=== PATIENT | female | born 1985 | race African-American/Black ===

== ENCOUNTER 2019-08-05 11:58 | Emergency (ER) | payer OTHER ==
[2019-08-05 12:08] VITALS: BP 122/80; PULSE 96; TEMP 98; BMI 28.1
[2019-08-05 14:00] LABS: HCG,QUALITATIVE URINE Positive
[2019-08-05 14:03] LABS: EPI CELLS >36 /uL (0-25.1); HYALINE CASTS 2 /uL (0-3.1); PH,URINE 5.5 (5.0-8.0); URINE APPEARANCE CLOUDY; URINE BACTERIA 2495 /uL (0-1359); URINE BILIRUBIN NEGATIVE (NEGATIVE); URINE COLOR YELLOW; URINE GLUCOSE (UA) NEGATIVE (NEGATIVE); URINE KETONE NEGATIVE (NEGATIVE); URINE LEUK ESTERASE 2+ (NEGATIVE); URINE NITRITE NEGATIVE (NEGATIVE); URINE PROTEIN NEGATIVE (NEGATIVE); URINE RBC 3 /uL (0-23.9); URINE UROBILINOGEN 0.2 mg/dL (0.2-1.0); URINE WBC 41 /uL (0-25.8)
== END 2019-08-05 15:52 | disposition home or self-care (01) ==
LOC: JER 11:58
DX: O26.899 Other specified pregnancy related conditions, unspecified trimester (principal); R10.9 Unspecified abdominal pain
CPT/HCPCS: 36415; 76817-TC; 81003; 84702; 84703; 87086; 99284-25

== ENCOUNTER 2020-04-05 07:00 | Inpatient (IN) | payer OTHER ==
[2020-04-05] MEDS: DEXTROSE 5%-LACTATED RINGERS 1,000 ML IV SCH (08:30)
[2020-04-05 08:40] VITALS: BMI 34.4
[2020-04-05 08:42] LABS: BASO % 0.2 % (0-2.0); EOS % 0.4 % (0-4.5); HEMATOCRIT 33.7 % (32.4-45.2); HEMOGLOBIN 11.2 GM/dL (10.7-15.3); LYMPH % 20.3 % (8-40); MCH 30.6 pg (25.7-33.7); MCHC 33.1 g/dl (32.0-36.0); MEAN CELL VOLUME 92.4 fl (80-96); MEAN PLT VOLUME 10.9 fl (7.5-11.1); MONO % 9.1 % (3.8-10.2); PLATELET COUNT 132 K/MM3 (134-434); RBC 3.65 M/mm3 (3.60-5.2); RDW 14.1 % (11.6-15.6); WHITE BLOOD COUNT 6.4 K/mm3 (4.0-10.0)
[2020-04-05 08:55] LABS: POTASSIUM 3.7 mmol/L (3.5-5.1)
[2020-04-05 08:56] LABS: CALCIUM 8.6 mg/dL (8.5-10.1)
[2020-04-05 08:57] LABS: BLOOD UREA NITROGEN 8.2 mg/dL (7-18)
[2020-04-05 09:04] LABS: CREATININE 0.5 mg/dL (0.55-1.3)
[2020-04-05 09:08] LABS: INR 0.94 (0.83-1.09); PROTHROMBIN TIME (PATIENT) 11.6 SEC (9.7-13.0)
[2020-04-05 09:11] LABS: ACTIVATED PTT 25.7 SECONDS (25.2-36.5)
[2020-04-05] MEDS ORDERED: OXYTOCIN 30 UNITS in 0.9% NS 30 UNIT/500 ML INFUS.BAG IVPB ONE (09:31)
[2020-04-05] MEDS ORDERED: OXYTOCIN 30 UNITS in 0.9% NS 30 UNIT/500 ML INFUS.BAG IVPB SCH (10:00)
[2020-04-05] MEDS ORDERED: PROMETHAZINE HCL 25 MG/1 ML VIAL IVPUSH ONE (10:00)
[2020-04-05] MEDS ORDERED: BUTORPHANOL TARTRATE 1 MG/ML VIAL IVPUSH PRN (10:00)
[2020-04-05 10:51] LABS: HIV INTERPRETATION NEGATIVE (NEGATIVE)
[2020-04-05] MEDS ORDERED: OXYTOCIN 20 UNITS in 0.9% NS 20 UNIT/1,000 ML INFUS.BAG IV ONE (16:19)
[2020-04-05] MEDS ORDERED: LIDOCAINE HCL 1% PRESERVATIVE FREE - 30ML VIAL ONE (16:19)
[2020-04-05] MEDS: OXYTOCIN 20 UNITS in 0.9% NS 20 UNIT/1,000 ML INFUS.BAG IV SCH (16:45)
[2020-04-05] MEDS ORDERED: BENZOCAINE 28 GM HEMORRHOIDAL OINTMENT TP PRN (16:46)
[2020-04-05] MEDS ORDERED: METHYLERGONOVINE MALEATE 0.2 MG/1 ML AMP IM PRN (16:46)
[2020-04-05] MEDS ORDERED: BENZOCAINE 20% 57 GM BOTTLE TP PRN (16:46)
[2020-04-05] MEDS ORDERED: WITCH HAZEL 50% (TUCKS) 40 PAD/JAR PAD TP PRN (16:46)
[2020-04-05] MEDS ORDERED: BISACODYL 10 MG SUPP.RECT RC PRN (16:46)
[2020-04-05] MEDS ORDERED: ACETAMINOPHEN 325 MG TABLET (FP) ONE (16:59)
[2020-04-05] MEDS ORDERED: IBUPROFEN 600 MG TABLET (FP) PO ONE (16:59)
[2020-04-05] MEDS: ACETAMINOPHEN 325 MG TABLET (FP) PO PRN ×2 (17:00→21:38)
[2020-04-05] MEDS: IBUPROFEN 600 MG TABLET (FP) PO PRN ×2 (17:00→21:39)
[2020-04-05] MEDS: FERROUS SO4 325 MG TABLET (FP) PO SCH (21:38)
[2020-04-06 06:41] LABS: BASO % 0.3 % (0-2.0); EOS % 0.5 % (0-4.5); HEMATOCRIT 34.6 % (32.4-45.2); HEMOGLOBIN 11.5 GM/dL (10.7-15.3); LYMPH % 16.9 % (8-40); MCH 30.7 pg (25.7-33.7); MCHC 33.1 g/dl (32.0-36.0); MEAN CELL VOLUME 92.5 fl (80-96); MEAN PLT VOLUME 10.6 fl (7.5-11.1); MONO % 10.6 % (3.8-10.2); NEUT % 71.7 % (42.8-82.8); PLATELET COUNT 125 K/MM3 (134-434); RBC 3.74 M/mm3 (3.60-5.2); RDW 13.9 % (11.6-15.6); WHITE BLOOD COUNT 10.1 K/mm3 (4.0-10.0)
[2020-04-06] MEDS: PRENATAL VITAMINS W/ FOLIC ACID TABLET (FP) PO SCH (09:14)
[2020-04-06] MEDS: IBUPROFEN 600 MG TABLET (FP) PO PRN (09:14)
[2020-04-06] MEDS: FERROUS SO4 325 MG TABLET (FP) PO SCH ×2 (09:14→21:32)
[2020-04-06] MEDS: DEXTROSE 5%-LACTATED RINGERS 1,000 ML IV SCH (13:48)
[2020-04-06] MEDS: OXYTOCIN 20 UNITS in 0.9% NS 20 UNIT/1,000 ML INFUS.BAG IV SCH (19:20)
[2020-04-06] MEDS ORDERED: SENNOSIDES/DOCUSATE COMBO (SENNA PLUS) TABLET (UD) PO PRN (22:00)
[2020-04-07 08:58] VITALS: BP 133/54; PULSE 90; TEMP 98.8
[2020-04-07] MEDS: FERROUS SO4 325 MG TABLET (FP) PO SCH (09:57)
[2020-04-07] MEDS: PRENATAL VITAMINS W/ FOLIC ACID TABLET (FP) PO SCH (09:57)
== END 2020-04-07 12:00 | disposition home or self-care (01) | DRG 560 ==
LOC: JLDR 07:00 → J3W 23:03
PROVIDERS: ADMIT Obstetrics & Gynecology; ATTEND Obstetrics & Gynecology
PROC: 10E0XZZ Delivery of Products of Conception, External Approach (ICD-10-PCS; principal; 2020-04-05)
PROC: 0HQ9XZZ Repair Perineum Skin, External Approach (ICD-10-PCS; 2020-04-05)
DX: O70.0 First degree perineal laceration during delivery (principal); Z3A.39 39 weeks gestation of pregnancy; Z37.0 Single live birth
CPT/HCPCS: 36415; 59409; 80048; 85025; 85610; 85730; 86780; 86850; 86900; 86901; 87389; C9803; U0003

== ENCOUNTER 2021-04-29 22:05 | Inpatient (IN) | payer OTHER ==
[2021-04-29] MEDS ORDERED: OXYTOCIN 20 UNITS in 0.9% NS 20 UNIT/1,000 ML INFUS.BAG IV ONE (23:19)
[2021-04-29 23:22] LABS: BASO % 0.3 % (0-2.0); EOS % 0.2 % (0-4.5); HEMATOCRIT 35.1 % (32.4-45.2); HEMOGLOBIN 11.8 GM/dL (10.7-15.3); LYMPH % 19.3 % (8-40); MCH 30.1 pg (25.7-33.7); MCHC 33.7 g/dl (32.0-36.0); MEAN CELL VOLUME 89.5 fl (80-96); NEUT % 68.2 % (42.8-82.8); PLATELET COUNT 155 10^3/uL (134-434); RBC 3.92 M/mm3 (3.60-5.2); RDW 13.8 % (11.6-15.6); WHITE BLOOD COUNT 8.5 K/mm3 (4.0-10.0)
[2021-04-29 23:24] VITALS: BMI 35.5
[2021-04-29 23:27] LABS: INR 0.95 (0.83-1.09); PROTHROMBIN TIME (PATIENT) 10.9 SEC (9.7-13.0)
[2021-04-29 23:28] LABS: ACTIVATED PTT 26.4 SECONDS (25.2-36.5)
[2021-04-29 23:41] LABS: BLOOD UREA NITROGEN 10.3 mg/dL (7-18); CALCIUM 9.2 mg/dL (8.5-10.1)
[2021-04-29 23:45] LABS: CREATININE 0.6 mg/dL (0.55-1.3)
[2021-04-30] MEDS ORDERED: LIDOCAINE HCL 1% PRESERVATIVE FREE - 30ML VIAL ONE (00:02)
[2021-04-30] MEDS ORDERED: ELECTROLYTE-148 SOLN 1,000 ML IV SCH (00:15)
[2021-04-30] MEDS ORDERED: BENZOCAINE 28 GM HEMORRHOIDAL OINTMENT TP PRN (00:22)
[2021-04-30] MEDS ORDERED: ACETAMINOPHEN 325 MG TABLET (FP) PO PRN ×2 (00:22→00:24)
[2021-04-30] MEDS ORDERED: METHYLERGONOVINE MALEATE 0.2 MG/1 ML AMP IM PRN (00:22)
[2021-04-30] MEDS ORDERED: BENZOCAINE 20% 57 GM BOTTLE TP PRN (00:22)
[2021-04-30] MEDS ORDERED: WITCH HAZEL 50% (TUCKS) 40 PAD/JAR PAD TP PRN (00:22)
[2021-04-30] MEDS ORDERED: BISACODYL 10 MG SUPP.RECT RC PRN (00:22)
[2021-04-30] MEDS ORDERED: OXYTOCIN 20 UNITS in 0.9% NS 20 UNIT/1,000 ML INFUS.BAG IV SCH (00:30)
[2021-04-30] MEDS ORDERED: IBUPROFEN 600 MG TABLET (FP) PO ONE (00:36)
[2021-04-30] MEDS: IBUPROFEN 600 MG TABLET (FP) PO PRN ×4 (00:40→17:59)
[2021-04-30 01:23] LABS: HIV INTERPRETATION NEGATIVE (NEGATIVE)
[2021-04-30] MEDS ORDERED: OXYTOCIN 20 UNITS in 0.9% NS 20 UNIT/1,000 ML INFUS.BAG IV ONE (01:55)
[2021-04-30] MEDS: FERROUS SO4 325 MG TABLET (FP) PO SCH ×3 (09:28→16:52)
[2021-04-30] MEDS: PRENATAL VITAMINS W/ FOLIC ACID TABLET (FP) PO SCH (09:29)
[2021-05-01] MEDS: SENNOSIDES/DOCUSATE COMBO (SENNA PLUS) TABLET (UD) PO PRN ×2 (01:14→22:11)
[2021-05-01 07:52] LABS: BASO % 0.2 % (0-2.0); EOS % 0.6 % (0-4.5); HEMATOCRIT 30.1 % (32.4-45.2); MCHC 33.3 g/dl (32.0-36.0); MEAN PLT VOLUME 10.4 fl (7.5-11.1); MONO % 8.3 % (3.8-10.2); NEUT % 63.9 % (42.8-82.8); PLATELET COUNT 133 10^3/uL (134-434); RBC 3.35 M/mm3 (3.60-5.2); RDW 13.8 % (11.6-15.6); WHITE BLOOD COUNT 7.3 K/mm3 (4.0-10.0)
[2021-05-01] MEDS: FERROUS SO4 325 MG TABLET (FP) PO SCH ×3 (09:33→17:23)
[2021-05-01] MEDS: PRENATAL VITAMINS W/ FOLIC ACID TABLET (FP) PO SCH (09:33)
[2021-05-01] MEDS: IBUPROFEN 600 MG TABLET (FP) PO PRN (14:12)
[2021-05-01] MEDS: SIMETHICONE 80 MG TAB.CHEW (FP) PO PRN ×2 (17:23→22:11)
[2021-05-02 09:07] VITALS: BP 109/71; PULSE 60; TEMP 98
[2021-05-02] MEDS: IBUPROFEN 600 MG TABLET (FP) PO PRN (09:41)
[2021-05-02] MEDS: PRENATAL VITAMINS W/ FOLIC ACID TABLET (FP) PO SCH (09:42)
[2021-05-02] MEDS: FERROUS SO4 325 MG TABLET (FP) PO SCH (09:42)
== END 2021-05-02 11:50 | disposition home or self-care (01) | DRG 560 ==
LOC: JDEL 22:05 → JLDR 22:35 → J3W 04-30 02:55
PROVIDERS: ADMIT Obstetrics & Gynecology; ATTEND Obstetrics & Gynecology
PROC: 10E0XZZ Delivery of Products of Conception, External Approach (ICD-10-PCS; principal; 2021-04-30)
PROC: 0W8NXZZ Division of Female Perineum, External Approach (ICD-10-PCS; 2021-04-30)
PROC: 0HQ9XZZ Repair Perineum Skin, External Approach (ICD-10-PCS; 2021-04-30)
DX: O70.0 First degree perineal laceration during delivery (principal); Z3A.37 37 weeks gestation of pregnancy; Z37.0 Single live birth
CPT/HCPCS: 36415; 59025; 59409; 80048; 85025; 85610; 85730; 86780; 86850; 86900; 86901; 87389; C9803-CS; U0003; U0005